=== PATIENT | male | born 1935 | race Hispanic/Latino ===

== ENCOUNTER 2018-10-19 10:34 | Emergency (ER) | payer OTHER, MEDICARE ==
[2018-10-19] MEDS ORDERED: TETANUS/DIPHTHERIA TOXOID [ADULT] 0.5 ML VIAL IM ONE (10:57)
== END 2018-10-19 13:41 | disposition home or self-care (01) ==
LOC: EDH 10:34
DX: S00.81XA Abrasion of other part of head, initial encounter (principal); S60.812A Abrasion of left wrist, initial encounter; S60.811A Abrasion of right wrist, initial encounter; Z72.0 Tobacco use; W18.39XA Other fall on same level, initial encounter; Y93.02 Activity, running; Y92.89 Other specified places as the place of occurrence of the external cause; Y99.8 Other external cause status
CPT/HCPCS: 73110; 73130; 90471; 90714